=== PATIENT | male | born 1985 | race Caucasian/White ===

== ENCOUNTER 2024-04-17 02:46 | Emergency (ER) | payer OTHER ==
[~2024-04-17] VITALS: Ht 182.9 cm; Wt 86.2 kg
[2024-04-17 03:24] LABS: BASOPHILS % (AUTO) 0.3 % (0.0-2.0); EOSINOPHILS # (AUTO) 0.1 K/uL (0.0-0.7); EOSINOPHILS % (AUTO) 1.8 % (0.0-7.0); HEMATOCRIT 44.2 % (36.7-47.1); HEMOGLOBIN 14.7 g/dL (12.5-16.3); LYMPHOCYTES # (AUTO) 1.6 K/uL (0.8-4.8); LYMPHOCYTES % (AUTO) 21.8 % (20.5-51.5); MEAN CORPUSCULAR HEMOGLOBIN 30.1 uug (23.8-33.4); MEAN CORPUSCULAR HGB CONC 33 g/dL (32.5-36.3); MEAN CORPUSCULAR VOLUME 90.6 fL (73.0-96.2); MONOCYTES # (AUTO) 0.8 K/uL (0.1-1.30); MONOCYTES % (AUTO) 10.1 % (0.0-11.0); NEUTROPHILS # (AUTO) 4.9 K/uL (1.8-8.9); PLATELET COUNT (AUTO) 293 K/uL (152-348); RED BLOOD CELL COUNT(AUTO) 4.88 MIL/uL (4.06-5.63); RED CELL DISTRIBUTION WIDTH 13.5 % (12.1-16.2); WHITE BLOOD COUNT (AUTO) 7.5 K/uL (3.6-10.2)
[2024-04-17 03:30] LABS: DIFFERENTIAL COMMENT 1
[2024-04-17 03:33] LABS: CALCIUM 8.5 mg/dL (8.5-10.1)
[2024-04-17 03:39] LABS: ALBUMIN 3.2 g/dL (3.4-5.0); BILIRUBIN,TOTAL 0.4 mg/dL (0.2-1.0); TOTAL PROTEIN, SERUM 7.2 g/dL (6.4-8.2)
[2024-04-17] MEDS ORDERED: CLIN300C12 PO (04:02)
[2024-04-17] MEDS ORDERED: CLINDAMYCIN HCL 300 MG CAPSULE ONE (04:17)
[2024-04-17] MEDS: CLINDAMYCIN HCL 150 MG CAPSULE PO ONE (04:19)
[2024-04-17 04:20] VITALS: BP 120/73; O2SAT 98
== END 2024-04-17 04:20 | disposition home or self-care (01) ==
LOC: ER 02:57
DX: S01.81XD Laceration without foreign body of other part of head, subsequent encounter (principal); L03.113 Cellulitis of right upper limb; M25.531 Pain in right wrist; R00.0 Tachycardia, unspecified; E88.09 Other disorders of plasma-protein metabolism, not elsewhere classified; F15.90 Other stimulant use, unspecified, uncomplicated; F17.210 Nicotine dependence, cigarettes, uncomplicated; Z59.00 Homelessness unspecified; Z48.02 Encounter for removal of sutures; X58.XXXD Exposure to other specified factors, subsequent encounter
CPT/HCPCS: 36415; 73120; 83605; 85025; 85730; A4606; A4663